=== PATIENT | female | born 1985 | race Two or more races ===

== ENCOUNTER 2024-06-12 20:38 | Emergency (ER) | payer MEDICAID, OTHER ==
[~2024-06-12] VITALS: Ht 154.9 cm; Wt 54.0 kg
--- NOTE | 2024-06-12 21:10 | ED.PDOC ---
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 Pt states she has been having generalized weakness for the past 2 days and states earlier this AM, she had vaginal spotting and states she bled through her pad. Pt states she got worried and went to local urgent care for evaluation. Pt states at urgent care she was told she has UTI and needed to be evaluated for low hemoglobin of 7.3 with normal EKG. Pt now in the ED, otherwise denies nausea, vomiting, diarrhea, fever, cough, chills, dyusia, hematuria, chest pain or shorntess of breath. Pt states sheis currenttly on her cycle with LMP starting May 25. Pt otherwise is . Pt denies any other symptoms at this time. 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 Family History Family History: Unknown Social History Smoker: Non-Smoker Alcohol: Denies ETOH Use Drugs: Denies Drug Use Lives In: Home Constitutional: reports: malaise, weakness; denies: chills, diaphoresis, fatigue, fever, sweats, others EENTM: denies: blurred vision, double vision, ear bleeding, ear discharge, ear drainage, ear pain, ear ringing, eye pain, eye redness, hearing loss, mouth pain, mouth swelling, nasal discharge, nose bleeding, nose congestion, nose pain, photophobia, tearing, throat pain, throat swelling, voice changes, others Respiratory: denies: cough, hemoptysis, orthopnea, SOB at rest, shortness of breath, SOB with excertion, stridor, wheezing, others Cardiovascular: denies: chest pain, dizzy spells, diaphoresis, Dyspnea on exertion, edema, irregular heart beat, left arm pain, lightheadedness, palpitations, PND, syncope, others Gastrointestinal: denies: abdomen distended, abdominal pain, blood streaked bowels, constipated, diarrhea, dysphagia, difficulty swallowing, hematemesis, melena, nausea, poor appetite, poor fluid intake, rectal bleeding, rectal pain, vomiting, others Genitourinary: reports: abnormal vagina bleeding; denies: burning, dyspareunia, dysuria, flank pain, frequency, hematuria, incontinence, pain, , vagina discharge, urgency, others Neurological: denies: dizziness, fainting, headache, left sided numbness, left sided weakness, numbness, paresthesia, pre-existing deficit, right sided numbness, right sided weakness, seizure, speech problems, tingling, tremors, weakness, others Musculoskeletal: denies: back pain, gout, joint pain, joint swelling, muscle pain, muscle stiffness, neck pain, others Integumetry: denies: bruises, change in color, change in hair/nails, dryness, laceration, lesions, lumps, rash, wounds, others Allergic/Immunocompromised: denies: Difficulty Healing, Frequent Infections, Hives, Itching, others Hematologic/Lymphatic: denies: anemia, blood clots, easy bleeding, easy bruising, swollen glands, others Endocrine: denies: excessive hunger, excessive sweating, excessive thirst, excessive urination, flushing, intolerance to cold, intolerance to heat, unexplained weight gain, unexplained weight loss, others Psychiatric: denies: anxiety, bipolar disorder, depression, hopeless, panic disorder, schizophrenia, sleepless, suicidal, others All Other Systems: Reviewed and Negative Physical Exam General Appearance: No Apparent Distress, Normal HEENT: Normal ENT Inspection, Pharynx Normal, TMs Normal Neck: Full Range of Motion, Non-Tender, Normal, Normal Inspection Respiratory: Chest Non-Tender, Lungs Clear, No Accessory Muscle Use, No Respiratory Distress, Normal Breath Sounds Cardiovascular: No Edema, No JVD, No Murmur, No Gallop, Normal Peripheral Pulses, Regular Rate/Rhythm Breast Exam: Deferred Gastrointestinal: No Organomegaly, Non Tender, No Pulsatile Mass, Normal Bowel Sounds, Soft Genitalia: Deferred Pelvic: Deferred Rectal: Deferred Extremities: No calf tenderness, Normal capillary refill, Normal inspection, Normal range of motion, Non-tender, No pedal edema Musculoskeletal : Apperance: Normal Neurologic: Alert, music leader II-XII nml as Tested, No Motor Deficits, Normal Affect, Normal Mood, No Sensory Deficits Cerebellar Function: Normal Reflexes: Normal Skin: Dry, Normal Color, Warm Lymphatic: No Adenopathy Was a procedure done? 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 Diagnosis (AUTO MOTOR MECHANIC) Vaginal Bleeding: Blood Loss Anemia, Cervicitis, Menorrhagia, Menometrorrhagia, Menstrual Bleeding, UTI, Vaginitis, Other (iron deficiency anemia) X-Ray, Labs, Meds, VS Vital Signs Date Time Temp Pulse Resp B/P (MAP) Pulse Ox O2 Delivery O2 Flow Rate FiO2 06/12/24 21:04 98.2 84 15 105/72 (83) 100 Lab Test 06/12/24 21:30 06/12/24 21:15 Range/Units Urine Color Yellow Yellow Urine Clarity Turbid H Clear Urine pH 5.0 5.0-9.0 Urine Specific [place] 1.010 1.001-1.035 Urine Protein Negative Negative Urine Ketones Negative Negative Urine Blood Trace H Negative /uL Urine Nitrite 2+ H Negative Urine Bilirubin Negative Negative Urine Urobilinogen 2 H Negative mg/dL Urine Leukocyte Esterase 3+ Negative /uL Urine RBC 4 0 - 4 /hpf Urine Microscopic WBC 54 H 0-5 /HPF Urine Squamous Epithelial Cells Few <5 /hpf Urine Amorphous Crystals Few None Seen /hpf Urine Bacteria Many H None Seen /hpf Urine Mucus Few None Seen Urine Glucose Normal Normal mg/dL Urine Test Negative Negative White Blood Count 4.4 4.4-10.8 10^3/uL Red Blood Count 4.77 4.0-5.20 10^6/uL Hemoglobin 8.7 L 12.2-16.2 g/dL Hematocrit 29.7 L 36.0-46.0 % Mean Corpuscular Volume 62.3 L 80.0-100.0 fL Mean Corpuscular Hemoglobin 18.2 L 28.0-32.0 pg Mean Corpuscular Hemoglobin Concent 29.2 L 32.0-36.0 g/dL Red Cell Distribution Width 23.6 H 11.8-14.3 % Platelet Count 256 140-450 10^3/uL Mean Platelet Volume 8.9 6.9-10.8 fL Neutrophils (%) (Auto) 40.4 37.0-80.0 % Lymphocytes (%) (Auto) 41.8 10.0-50.0 % Monocytes (%) (Auto) 14.1 H 0.0-12.0 % Eosinophils (%) (Auto) 3.0 0.0-7.0 % Basophils (%) (Auto) 0.7 0.0-2.0 % Neutrophils # (Auto) 1.8 1.6-8.6 10 ^3/uL Lymphocytes # (Auto) 1.8 0.4-5.4 10 ^3/uL Monocytes # (Auto) 0.6 0-1.3 10 ^3/uL Eosinophils # (Auto) 0.1 0-0.8 10 ^3/uL Basophils # (Auto) 0 0-0.2 10 ^3/uL Nucleated Red Blood Cells 0.2 % Platelet Estimate Adequate Hypochromasia (manual) Marked Anisocytosis (manual) Slight Microcytosis Marked Target Cells Few Stomatocytes Few Sodium Level 136 136-145 mmol/L Potassium Level 3.3 L 3.5-5.1 mmol/L Chloride Level 103 98-107 mmol/L Carbon Dioxide Level 25 20-31 mmol/L Anion Gap 8 5-15 Blood Urea Nitrogen 6 L 9-23 mg/dL Creatinine 0.58 0.550-1.02 mg/dL Glomerular Filtration Rate Calc 118 >90 mL/min BUN/Creatinine Ratio 10.3 10.0-20.0 Serum Glucose 98 74-106 mg/dL Calcium Level 9.6 8.7-10.4 mg/dL Beta HCG, Quantitative 0.7 L 1.5-4.2 mIU/mL X-Ray, Labs, Meds, VS Comment Imaging: X-rays and CT scans were reviewed and interpreted by this provider, imaging shows no fractures and no pathological disease. Pending radiology review. Laboratory: Labs reviewed and interpreted by this provider. Patient has prior medical visits reviewed. Med reconciliation performed Vital signs reviewed Time of 1ST Reevaluation: 21:40 Reevaluation 1ST: Unchanged Patient Education/Counseling: Diagnosis, Treatment, Need For Follow Up (Patient advised to follow-up in the emergency room in the next 24 to 48 hours if symptoms do not improve. Advised follow-up with PCP in the next 3 to 5 days. Patient verbalized understanding. ) Family Education/Counseling: No Family Present Departure 1 Departure Time of Disposition: 23:54 Impression: Primary Impression: Anemia Qualified Codes: D50.0 - Iron deficiency anemia secondary to blood loss (chronic) Additional Impressions: Dysmenorrhea Urinary tract infection Qualified Codes: N30.01 - Acute cystitis with hematuria Disposition: HOME / SELF CARE / HOMELESS Condition: Fair e-Prescriptions Nitrofurantoin Monohydrate Mac (Macrobid) 100 Mg Cap 100 MG PO BID for 7 Days, #14 CAP Prov: SHERI CRUZ 06/12/24 Discharged With: Self Critical Care Note Critical Care Time?: No Stability Stability form required: No Heart Score Heart Score: Heart Score Response (Comments) Value History N/A 0 EKG N/A 0 Age N/A 0 Risk Factors N/A 0 Troponin N/A 0 Total 0 I personally scribed for SHERI CRUZ ([email or web address]) on 06/12/24 at 21:10. Electronically submitted by Ottoniel Hopson ([email or web address]). SHERI CRUZ Jun 12, 2024 21:10
[2024-06-12 21:30] LABS: Basophils # (auto) 0 10 ^3/uL (0-0.2); Basophils % (auto) 0.7 % (0.0-2.0); Eosinophils # (auto) 0.1 10 ^3/uL (0-0.8); Hematocrit 29.7 % (36.0-46.0); Hemoglobin 8.7 g/dL (12.2-16.2); Lymphocytes # (auto) 1.8 10 ^3/uL (0.4-5.4); Lymphocytes % (auto) 41.8 % (10.0-50.0); Mean Corpuscular Hemoglobin 18.2 pg (28.0-32.0); Mean Corpuscular Hgb Conc. 29.2 g/dL (32.0-36.0); Mean Corpuscular Volume 62.3 fL (80.0-100.0); Monocytes # (auto) 0.6 10 ^3/uL (0-1.3); Monocytes % (auto) 14.1 % (0.0-12.0); Neutrophils # (auto) 1.8 10 ^3/uL (1.6-8.6); Neutrophils % (auto) 40.4 % (37.0-80.0); Nucleated Red Blood Cells % 0.2 %; Platelet Count (auto) 256 10^3/uL (140-450); Red Blood Cells 4.77 10^6/uL (4.0-5.20); White Blood Cell 4.4 10^3/uL (4.4-10.8)
[2024-06-12 21:32] LABS: Red Cell Distribution Width 23.6 % (11.8-14.3)
[2024-06-12 21:33] LABS: Chloride 103 mmol/L (98-107); Sodium 136 mmol/L (136-145)
[2024-06-12 21:34] LABS: Anion Gap 8 (5-15); Calcium 9.6 mg/dL (8.7-10.4); Carbon Dioxide 25 mmol/L (20-31)
[2024-06-12 21:39] LABS: BUN/Creatinine Ratio 10.3 (10.0-20.0); Blood Urea Nitrogen 6 mg/dL (9-23); Glucose 98 mg/dL (74-106); Potassium 3.3 mmol/L (3.5-5.1)
[2024-06-12 21:57] LABS: Platelet Estimate Adequate
[2024-06-12 21:58] LABS: Urine Amorphous Crystal FEW /hpf (None Seen); Urine Bacteria MANY /hpf (None Seen); Urine Blood TRACE /uL (Negative); Urine Clarity Turbid (Clear); Urine Color Yellow (Yellow); Urine Mucus FEW (None Seen); Urine Protein, UAD Negative (Negative); Urine Squamous Epithelial Cell FEW /hpf (<5); Urine Urobilinogen 2 mg/dL (Negative); Urine WBC 54 /HPF (0-5)
[2024-06-12 21:58] LABS: Anisocytosis Slight; Hypochromia Marked; Stomatocytes Few; Target Cell FEW
--- NOTE | 2024-06-12 23:25 | DVH ---
INDICATION: vag bleed TECHNIQUE: Multiple real-time grayscale transabdominal sonographic images along with color and duplex Doppler of the uterus and ovaries were obtained. COMPARISON: None FINDINGS: The uterus measures 6.9 x 5.3 x 4.5 cm. The endometrial stripe measures 0.8 cm. Heterogeneo usly echogenic lesion in the uterus myometrium measuring 2.9 x 2.8 x 3.2 cm. This may represent a fi broid. The right ovary measures 4.5 x 1.7 x 3.7 cm. The left ovary measures 3.4 x 1.8 x 3.1 cm. Bilateral cystic lesions measuring up to 2 cm. Subsequent color and duplex Doppler interrogation of the ovaries demonstrated symmetric vascular flow to both ovaries, though this does not exclude the possibility of torsion due to the dual blood suppl y. IMPRESSION: Uterine lesion measuring up to 3.2 cm which may represent a fibroid. Consider confirmation with nonem ergent pelvic MRI.
[2024-06-12] MEDS ORDERED: NITR-87 PO (23:56)
[2024-06-13 00:11] VITALS: BP 105/67; PULSE 107; RESP 16; TEMP 98.4; O2SAT 100
== END 2024-06-13 00:13 | disposition home or self-care (01) ==
LOC: ER 20:38
DX: D50.0 Iron deficiency anemia secondary to blood loss (chronic) (principal); N94.6 Dysmenorrhea, unspecified; N39.0 Urinary tract infection, site not specified
CPT/HCPCS: 36415; 76830; 76856; 80048; 81001; 81025; 84702; 85025; 86850; 86900; 86901

== ENCOUNTER 2024-09-16 19:41 | Emergency (ER) | payer OTHER ==
[~2024-09-16] VITALS: Ht 154.9 cm; Wt 55.2 kg
[~2024-09-16 19:41] MED LIST: NITR-87 PO
--- NOTE | 2024-09-16 20:12 | ED.PDOC ---
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 Patient reports she had spotting prior for 2 days, subsided but now have been bleeding heavily with large blood clots. Patient reports last month she spotted for 3 weeks, has has previous irregular bleeding in which she was seen at the ED for and was told she possibly have ovarian cysts but was never diagnosed with it by PCP. Patient also complains of feeling dizzy. She denies any fever, chills, SOB, rectal or bloody stool. Chief Complaint: Vaginal Bleed Time Seen by MD: 19:52 Reviewed Notes: Nurses Notes, Medications, Allergies Allergies: Coded Allergies: NO KNOWN ALLERGIES (Unverified , 06/12/24) Home Meds Active Scripts Nitrofurantoin Monohydrate Mac (Macrobid) 100 Mg Cap, 100 MG PO BID for 7 Days, #14 CAP Prov:SHERI CRUZ 06/12/24 Information Source: Patient Mode of Arrival: Ambulatory Timing: Weeks (2) Severity: Moderate Vaginal Discharge: None Vaginal Lesions: None Bleeding Quality: Dark, Clotted Vaginal Mass: None Onset Of Mass/Bleeding: Spontaneous Sexual Activity: Neither Last Consensual [place]: Unknown Control: None Symptoms of Possible : None Associated Signs and Symptoms: Vaginal Bleeding, Cramping Past Medical History PAST MEDICAL HISTORY: Denies Surgical History: Unknown 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 Family History Family History: Family hx of DM Social History Smoker: Non-Smoker Alcohol: Denies ETOH Use Drugs: Denies Drug Use Lives In: Home Constitutional: denies: chills, diaphoresis, fatigue, fever, malaise, sweats, weakness, others EENTM: denies: blurred vision, double vision, ear bleeding, ear discharge, ear drainage, ear pain, ear ringing, eye pain, eye redness, hearing loss, mouth pain, mouth swelling, nasal discharge, nose bleeding, nose congestion, nose pain, photophobia, tearing, throat pain, throat swelling, voice changes, others Respiratory: denies: cough, hemoptysis, orthopnea, SOB at rest, shortness of breath, SOB with excertion, stridor, wheezing, others Cardiovascular: denies: chest pain, dizzy spells, diaphoresis, Dyspnea on exertion, edema, irregular heart beat, left arm pain, lightheadedness, palpitations, PND, syncope, others Gastrointestinal: denies: abdomen distended, abdominal pain, blood streaked bowels, constipated, diarrhea, dysphagia, difficulty swallowing, hematemesis, melena, nausea, poor appetite, poor fluid intake, rectal bleeding, rectal pain, vomiting, others Genitourinary: reports: abnormal vagina bleeding, pain; denies: burning, dyspareunia, dysuria, flank pain, frequency, hematuria, incontinence, , vagina discharge, urgency, others Neurological: reports: dizziness; denies: fainting, headache, left sided numbness, left sided weakness, numbness, paresthesia, pre-existing deficit, right sided numbness, right sided weakness, seizure, speech problems, tingling, tremors, weakness, others Musculoskeletal: denies: back pain, gout, joint pain, joint swelling, muscle pain, muscle stiffness, neck pain, others Integumetry: denies: bruises, change in color, change in hair/nails, dryness, laceration, lesions, lumps, rash, wounds, others Allergic/Immunocompromised: denies: Difficulty Healing, Frequent Infections, Hives, Itching, others Hematologic/Lymphatic: reports: blood clots; denies: anemia, easy bleeding, e asy bruising, swollen glands, others Endocrine: denies: excessive hunger, excessive sweating, excessive thirst, excessive urination, flushing, intolerance to cold, intolerance to heat, unexplained weight gain, unexplained weight loss, others Psychiatric: denies: anxiety, bipolar disorder, depression, hopeless, panic disorder, schizophrenia, sleepless, suicidal, others All Other Systems: Reviewed and Negative Physical Exam General Appearance: Moderate Distress HEENT: Pale Conjuntivae (L), Pale Conjuntivae (R), Pharynx Normal, TMs Normal Neck: Full Range of Motion, Non-Tender, Normal, Normal Inspection Respiratory: Chest Non-Tender, Lungs Clear, No Accessory Muscle Use, No Respiratory Distress, Normal Breath Sounds Cardiovascular: No Edema, No JVD, No Murmur, No Gallop, Normal Peripheral Pulses, Regular Rate/Rhythm Breast Exam: Deferred Gastrointestinal: No Organomegaly, Non Tender, No Pulsatile Mass, Normal Bowel Sounds, Soft Genitalia: Deferred Pelvic: Deferred Rectal: Deferred Extremities: No calf tenderness, Normal capillary refill, Normal inspection, Normal range of motion, Non-tender, No pedal edema Musculoskeletal : Apperance: Normal Neurologic: Alert, alarm signal operator II-XII nml as Tested, Motor Weakness, Normal Affect, Normal Mood, No Sensory Deficits Cerebellar Function: Normal Reflexes: Normal Skin: Dry, Pallor, Warm, Other (Delayed capillary refill) Lymphatic: No Adenopathy Was a procedure done? 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 Diagnosis (COVER CUTTER) Vaginal Bleeding: - Incomplete, - Inevitable, - Threatened, Blood Loss Anemia, Cervicitis, Dysmenorrhea, Ectopic , Hormonal, Menometrorrhagia, Menstrual Bleeding, PID X-Ray, Labs, Meds, VS Vital Signs Date Time Temp Pulse Resp B/P (MAP) Pulse Ox O2 Delivery O2 Flow Rate FiO2 09/16/24 19:57 97.9 99 20 109/61 (77) 99 97.9 Lab Test 09/16/24 20:33 09/16/24 19:56 Range/Units White Blood Count 4.0 L 4.4-10.8 10^3/uL Red Blood Count 3.73 L 4.0-5.20 10^6/uL Hemoglobin 7.3 L 12.2-16.2 g/dL Hematocrit 24.2 L 36.0-46.0 % Mean Corpuscular Volume 64.9 L 80.0-100.0 fL Mean Corpuscular Hemoglobin 19.5 L 28.0-32.0 pg Mean Corpuscular Hemoglobin Concent 30.0 L 32.0-36.0 g/dL Red Cell Distribution Width 24.6 H 11.8-14.3 % Platelet Count 308 140-450 10^3/uL Mean Platelet Volume 8.4 6.9-10.8 fL Neutrophils (%) (Auto) 48.8 37.0-80.0 % Lymphocytes (%) (Auto) 37.5 10.0-50.0 % Monocytes (%) (Auto) 10.4 0.0-12.0 % Eosinophils (%) (Auto) 2.3 0.0-7.0 % Basophils (%) (Auto) 1.0 0.0-2.0 % Neutrophils # (Auto) 1.9 1.6-8.6 10 ^3/uL Lymphocytes # (Auto) 1.5 0.4-5.4 10 ^3/uL Monocytes # (Auto) 0.4 0-1.3 10 ^3/uL Eosinophils # (Auto) 0.1 0-0.8 10 ^3/uL Basophils # (Auto) 0 0-0.2 10 ^3/uL Nucleated Red Blood Cells 0.1 % Prothrombin Time Pending Prothrombin Time INR Pending Activated Partial Thromboplast Time Pending Sodium Level 144 136-145 mmol/L Potassium Level 3.8 3.5-5.1 mmol/L Chloride Level 110 H 98-107 mmol/L Carbon Dioxide Level 27 20-31 mmol/L Anion Gap 7 5-15 Blood Urea Nitrogen 6 L 9-23 mg/dL Creatinine 0.58 0.550-1.02 mg/dL Glomerular Filtration Rate Calc 117 >90 mL/min BUN/Creatinine Ratio 10.3 10.0-20.0 Serum Glucose 98 74-106 mg/dL Calcium Level 9.4 8.7-10.4 mg/dL Beta HCG, Quantitative 1.1 L 1.5-4.2 mIU/mL Urine Color Colorless Yellow Urine Clarity Turbid H Clear Urine pH 6.5 5.0-9.0 Urine Specific [place] 1.011 1.001-1.035 Urine Protein Negative Negative Urine Ketones Negative Negative Urine Blood Negative Negative /uL Urine Nitrite 2+ H Negative Urine Bilirubin Negative Negative Urine Urobilinogen 3 H Negative mg/dL Urine Leukocyte Esterase 2+ Negative /uL Urine RBC 2 0 - 4 /hpf Urine Microscopic WBC 24 H 0-5 /HPF Urine Squamous Epithelial Cells Few <5 /hpf Urine Bacteria Few H None Seen /hpf Urine Mucus Few None Seen Urine Glucose Normal Normal mg/dL The patient's CBC shows a hemoglobin of 7.3 and hematocrit 24.2 The patient was platelets are 308 The chemistry panel is within normal limits The urine test is positive for a UTI as well We did call Dr. Tovar who is the OBGYN on-call At this time, the patient was being transfused with 2 units of packed red blood cells Following the transfusion, the patient will be discharged and will follow up with Dr. Parham The patient was being signed out to Dr. Alberto Images Reviewed?: Images reviewed and evaluated by me Time of 1ST Reevaluation: 20:08 Reevaluation 1ST: Unchanged Time of 2ND Reevaluation: 21:14 Reevaluation 2ND: Unchanged Patient Education/Counseling: Diagnosis, Treatment, Prognosis, Need For Follow Up Family Education/Counseling: No Family Present Departure 1 Departure Time of Disposition: 21:14 Impression: Primary Impression: Blood loss Additional Impression: Vaginal bleeding Disposition: 30 STILL A PATIENT Condition: Fair Critical Care Note Critical Care Time?: No Stability Stability form required: No I personally scribed for JOSE J PONCE MD ([email or web address]) on 09/16/24 at 20:12. Electronically submitted by Ema Wright ([facility]). JOSE J PONCE MD September 16, 2024 20:12
[2024-09-16 20:27] LABS: Urine Bacteria FEW /hpf (None Seen); Urine Blood Negative /uL (Negative); Urine Clarity Turbid (Clear); Urine Color Colorless (Yellow); Urine Mucus FEW (None Seen); Urine Protein, UAD Negative (Negative); Urine Specific Gravity 1.011 (1.001-1.035); Urine Squamous Epithelial Cell FEW /hpf (<5); Urine Urobilinogen 3 mg/dL (Negative); Urine WBC 24 /HPF (0-5); Urine pH 6.5 (5.0-9.0)
[2024-09-16 20:47] LABS: Basophils # (auto) 0 10 ^3/uL (0-0.2); Eosinophils # (auto) 0.1 10 ^3/uL (0-0.8); Lymphocytes # (auto) 1.5 10 ^3/uL (0.4-5.4); Monocytes # (auto) 0.4 10 ^3/uL (0-1.3)
[2024-09-16 20:48] LABS: Eosinophils % (auto) 2.3 % (0.0-7.0); Hematocrit 24.2 % (36.0-46.0); Hemoglobin 7.3 g/dL (12.2-16.2); Lymphocytes % (auto) 37.5 % (10.0-50.0); Mean Corpuscular Hemoglobin 19.5 pg (28.0-32.0); Mean Corpuscular Volume 64.9 fL (80.0-100.0); Monocytes % (auto) 10.4 % (0.0-12.0); Neutrophils # (auto) 1.9 10 ^3/uL (1.6-8.6); Neutrophils % (auto) 48.8 % (37.0-80.0); Nucleated Red Blood Cells % 0.1 %; Platelet Count (auto) 308 10^3/uL (140-450); Red Blood Cells 3.73 10^6/uL (4.0-5.20); Red Cell Distribution Width 24.6 % (11.8-14.3)
[2024-09-16 20:57] LABS: Potassium 3.8 mmol/L (3.5-5.1); Sodium 144 mmol/L (136-145)
[2024-09-16 20:58] LABS: Anion Gap 7 (5-15); Calcium 9.4 mg/dL (8.7-10.4); Carbon Dioxide 27 mmol/L (20-31)
[2024-09-16 21:03] LABS: BUN/Creatinine Ratio 10.3 (10.0-20.0); Glucose 98 mg/dL (74-106); INR 1.01 (0.9-1.15); Prothrombin Time 10.7 sec (9.3-11.8)
[2024-09-16 21:06] LABS: Blood Urea Nitrogen 6 mg/dL (9-23); Chloride 110 mmol/L (98-107)
[2024-09-16] MEDS ORDERED: CIPR-173 PO (21:15)
--- NOTE | 2024-09-16 21:24 | DVH ---
INDICATION: pain and bleeding TECHNIQUE: Multiple real-time grayscale transabdominal sonographic images along with color and duplex Doppler of the uterus and ovaries were obtained. COMPARISON: US PELVIC on DOS: 06/12/24 FINDINGS: The uterus measures 10.17 x 5.36 x 5.11 cm. Multiple intramural fibroids. Largest measures 2.88 x 2.63 x 3.60. The endometrial stripe measures 15.3 mm. The right ovary measures 5.55 x 2.45 x 4.91 cm. Right ovarian volume is 35.07 cc. The left ovary measures 3.15 x 2.10 x 3.07 cm. Left ovarian volume is 10.62 cc cm. Subsequent color and duplex Doppler interrogation of the ovaries demonstrated symmetric vascular flow to both ovaries, though this does not exclude the possibility of torsion due to the dual blood suppl y. IMPRESSION: 1. Intramural fibroids. 2. Thickened endometrium there is a heterogeneous mass within the endometrial canal. 3. Bilateral simple ovarian cysts.
[2024-09-16 23:00] VITALS: PULSE 82; RESP 13; O2SAT 99
[2024-09-17 01:00] VITALS: BP 93/55; PULSE 86; RESP 16; TEMP 98.2
[2024-09-17 01:20] VITALS: BP 97/67; PULSE 85; RESP 19; TEMP 98.3
[2024-09-17 03:34] VITALS: BP 100/63; PULSE 71; RESP 16; TEMP 98.3
[2024-09-17 04:36] VITALS: BP 100/66; PULSE 78; RESP 16; TEMP 98.4
[2024-09-17 04:57] VITALS: BP 98/62; PULSE 73; RESP 15; TEMP 98.4
--- NOTE | 2024-09-17 05:59 | ED.PDOC ---
Departure 1 Departure Time of Disposition: 21:14 Impression: Primary Impression: Blood loss Additional Impression: Vaginal bleeding Disposition: HOME / SELF CARE / HOMELESS Condition: Stable Referrals: PATTI PARHAM DO Additional Instructions: Please follow up with Dr. Parham this week. e-Prescriptions Ciprofloxacin Hcl (Cipro) 500 Mg Tab 1 TAB PO BID, #14 TAB Prov: JOSE J PONCE MD 09/16/24 Discharged With: Self MERCEDEZ DRAKE MD September 17, 2024 05:58
[2024-09-17 07:00] VITALS: BP_SYST 103; BP_SYST 105; BP_DIAS 58; BP_DIAS 66; PULSE 80; RESP 11; TEMP 98.5; O2SAT 99
== END 2024-09-17 07:35 | disposition home or self-care (01) ==
LOC: ER 19:44
DX: N93.9 Abnormal uterine and vaginal bleeding, unspecified (principal); R58 Hemorrhage, not elsewhere classified
CPT/HCPCS: 36415; 36430; 76856; 80048; 81001; 84702; 85025; 85610; 85730; 86850; 86900; 86901; 86920; 99285; P9016

== ENCOUNTER → 2024-09-18 | Outpatient (CLI) | payer OTHER ==
[~2024-09-18] MED LIST changes: +CIPR-173 PO
[2024-09-18 12:33] LABS: Basophils # (auto) 0 10 ^3/uL (0-0.2); Eosinophils # (auto) 0.1 10 ^3/uL (0-0.8); Hematocrit 32.1 % (36.0-46.0); Lymphocytes # (auto) 1.9 10 ^3/uL (0.4-5.4); Mean Corpuscular Hemoglobin 22.8 pg (28.0-32.0); Mean Corpuscular Hgb Conc. 31.9 g/dL (32.0-36.0); Nucleated Red Blood Cells % 0.2 %; White Blood Cell 6.7 10^3/uL (4.4-10.8)
[2024-09-18 12:34] LABS: Basophils % (auto) 0.6 % (0.0-2.0); Eosinophils % (auto) 1.1 % (0.0-7.0); Hemoglobin 10.3 g/dL (12.2-16.2); Lymphocytes % (auto) 28.5 % (10.0-50.0); Mean Corpuscular Volume 71.3 fL (80.0-100.0); Monocytes # (auto) 0.7 10 ^3/uL (0-1.3); Monocytes % (auto) 10.3 % (0.0-12.0); Neutrophils % (auto) 59.5 % (37.0-80.0); Platelet Count (auto) 332 10^3/uL (140-450); Red Blood Cells 4.51 10^6/uL (4.0-5.20)
[2024-09-18 12:35] LABS: Red Cell Distribution Width 27.1 % (11.8-14.3)
== END | disposition home or self-care (01) ==
LOC: LAB 12:17
PROVIDERS: ATTEND Obstetrics & Gynecology
DX: N93.9 Abnormal uterine and vaginal bleeding, unspecified (principal)
CPT/HCPCS: 36415; 85025